=== PATIENT | female | born 1980 | race African-American/Black ===

== ENCOUNTER 2018-01-25 19:29 | Emergency (ER) | payer OTHER ==
[~2018-01-25] VITALS: Ht 167.6 cm; Wt 77.1 kg
[~2018-01-25 19:29] MED LIST: TOBREX5 ML OP
[2018-01-25] MEDS ORDERED: NOHOMEMEDICATIONS (19:39)
[2018-01-25] MEDS ORDERED: FLEXERIL PO (20:42)
[2018-01-25] MEDS ORDERED: NORCO 5-325 TA1 EACH PO (20:42)
[2018-01-25 21:11] VITALS: BP 118/64
== END 2018-01-25 21:13 | disposition home or self-care (01) ==
LOC: M.ERS 19:29
DX: M53.3 Sacrococcygeal disorders, not elsewhere classified (principal)